=== PATIENT | female | born 1955 | race Caucasian/White ===

== ENCOUNTER 2022-01-26 13:03 | Outpatient (CLI) | payer OTHER, SELFPAY ==
--- NOTE | ~2022-01-26 | XR_ITS ---
Lumbosacral Spine: AP and lateral views Clinical History: Pain Findings: The normal lordotic curve is maintained. The vertebral bodies and posterior elements are i ntact. The intervertebral disc spaces are preserved. Facet joint degenerative changes are present fr om L3 through S1. The sacroiliac joints are normally outlined. Calcified uterine fibroids noted. Impression: Facet joint degenerative changes, as above. Reviewed, dictated and finalized at location M. TECHNOLOGY ENGINEERING TECHNICIAN Impression: Facet joint degenerative changes, as above.
--- NOTE | ~2022-01-26 | XR_ITS ---
Left foot Technique: AP and lateral standing views were obtained. Clinical History: Pain, long-term use of aromatase inhibitors Findings: No acute fracture or dislocation is seen. Osseous alignment is anatomic. Joint spaces are p reserved without erosive or degenerative change. Soft tissues are unremarkable. Impression: Unremarkable left foot radiographs. Reviewed, dictated and finalized at location . WORKER Impression: Unremarkable left foot radiographs.
--- NOTE | ~2022-01-26 | XR_ITS ---
Bilateral Hand Technique: Bilateral PA, oblique, and lateral views, and ball-catcher's view were obtained. Clinical History: Long-term use of rotation hinders, arthritis, pain Findings: No acute fracture or dislocation is seen. Osseous alignment is anatomic. Scattered minimal osteoarthritic changes noted in the interphalangeal joints. Soft tissues are unremarkable. 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 Reviewed, dictated and finalized at location M. LEASING INFORMATION CLERK Impression: Scattered minimal osteoarthritic changes in the interphalangeal joints.
--- NOTE | ~2022-01-26 | XR_ITS ---
AP view of the pelvis and AP and lateral views of the bilateral hips Clinical history: Pain, long-term aromatase inhibitor use Findings: No acute fracture or dislocation is seen. Osseous alignment is anatomic. Bilateral hip and SI joint spaces are preserved. Calcified uterine fibroids noted. Impression: No osseous or articular abnormality is seen. Calcified uterine fibroids. Reviewed, dictated and finalized at [facility]. D REPRESENTATIVE Impression: No osseous or articular abnormality is seen. Calcified uterine fibroids.
--- NOTE | ~2022-01-26 | XR_ITS ---
Right foot Technique: AP and lateral standing views were obtained. Clinical History: Pain, long-term use of aromatase inhibitors Findings: No acute fracture or dislocation is seen. Osseous alignment is anatomic. Joint spaces are p reserved without erosive or degenerative change. Mild enthesopathic change noted at the Achilles tend on insertion. Soft tissues are otherwise unremarkable. Impression: No fracture or dislocation. Mild enthesopathic change at the Achilles tendon insertion. Reviewed, dictated and finalized at location M. C WEB DEVELOPER Impression: No fracture or dislocation. Mild enthesopathic change at the Achilles tendon insertion.
[2022-01-26 14:30] LABS: Hematocrit 45.8 % (37.0-47.0); Mean Corpuscular HGB Conc 32.8 g/dl (32-36); Mean Corpuscular Hemoglobin 30.1 pg (26-34); Mean Platelet Volume 9.1 fl (7.4-10.4); Platelet Count Result 404 k/mm3 (150-375); Red Blood Count 4.98 M/mm3 (4.2-5.4); White Blood Count 7.7 K/mm3 (4.5-10.0)
[2022-01-26 14:47] LABS: Alanine Aminotransferase 61 U/L (6-35); Albumin Level 4.8 g/dL (3.5-5.1); Alkaline Phosphatase 125 U/L (38-126); Anion Gap 9 mmol/L (8-16); Aspartate Amino Transferase 49 U/L (14-36); Bilirubin,Total 0.3 mg/dL (0.2-1.3); Blood Urea Nitrogen 13 mg/dL (7-17); Carbon Dioxide 23 mmol/L (22-30); Chloride 101 mmol/L (98-107); Estimated Glomerular Filt Rate > 60; Glucose 105 mg/dL (65-110); Potassium 3.6 mmol/L (3.4-5.0); Sodium 133 mmol/L (137-145); Uric Acid 5.5 mg/dL (2.5-7.5)
[2022-01-26 14:50] LABS: Rheumatoid Factor < 8.6 IU/ML (<12)
[2022-01-26 14:54] LABS: Erythrocyte Sedimentation Rate 15 mm/hr (0-20)
[2022-01-29 07:01] LABS: SS-A <1.0; SS-B <1.0
[2022-01-29 20:17] LABS: SM Antibody <1.0; SM/RNP Antibody <1.0
[2022-01-30 18:55] LABS: Anti Cyclic Citrullinated Pept <16 Units (<20)
== END 2022-01-26 13:04 | disposition home or self-care (01) ==
PROVIDERS: PCP Internal Medicine Pulmonary Disease; Visit Provider Internal Medicine
DX: Z79.899 Other long term (current) drug therapy (principal); Z71.89 Other specified counseling; Z79.811 Long term (current) use of aromatase inhibitors; M15.9 Polyosteoarthritis, unspecified; D25.9 Leiomyoma of uterus, unspecified
CPT/HCPCS: 36415; 72100; 73130; 73521; 73620; 80053; 84550; 85027; 85652; 86038; 86039; 86200; 86225; 86235; 86430